=== PATIENT | female | born 1970 | race Caucasian/White ===

== ENCOUNTER 2024-08-25 15:29 | Inpatient (IN) | payer SELFPAY ==
[~2024-08-25] VITALS: Ht 162.6 cm; Wt 67.1 kg
[2024-08-25 19:36] LABS: BASOPHILS % 0.2 % (0.0-2.0); EOSINOPHILS % 2.2 % (0.0-5.0); HEMATOCRIT. 41.3 % (36.0-48.0); HEMOGLOBIN. 13.5 g/dL (12.0-16.0); LYMPHOCYTES % 41.4 % (20.0-50.0); MEAN CORPUSCULAR HEMOGLOBIN 28.7 pg (28.0-32.0); MEAN CORPUSCULAR HGB CONC 32.8 g/dL (31.0-37.0); MEAN CORPUSCULAR VOLUME 87.6 fL (81.0-99.0); MEAN PLATELET VOLUME 9.1 fl (7.4-10.4); MONOCYTES % 3.6 % (2.0-8.0); NEUTROPHILS % 52.6 % (40.0-76.0); PLATELET 224 x1000/uL (130-400); RED BLOOD CELL COUNT 4.71 mill/uL (4.2-5.4); RED CELL DISTRIBUTION WIDTH 13.7 % (11.6-14.6)
[2024-08-25 19:42] LABS: CHLORIDE 104 mEq/L (98-107); POTASSIUM 3.7 mEq/L (3.5-5.1); SODIUM 140 mEq/L (136-145)
[2024-08-25 19:43] LABS: CALCIUM 10.1 mg/dL (8.7-10.4)
[2024-08-25 19:48] LABS: CARBON DIOXIDE 24 mEq/L (21-32); CREATININE 0.7 mg/dL (0.6-1.0); GLUCOSE 116 mg/dL (70-105); UREA NITROGEN BLOOD 13 mg/dL (9-23)
[2024-08-25 21:24] LABS: ALANINE AMINOTRANSFERASE 116 IU/L (10-49); ALBUMIN 4.4 g/dL (3.2-4.8); ASPARTATE AMINOTRANSFERASE 60 IU/L (<34); BILIRUBIN DIRECT 0.2 mg/dL (<=3.0); BILIRUBIN TOTAL 0.6 mg/dL (0.1-1.0); PROTEIN TOTAL 7.5 g/dL (6.0-8.3)
[2024-08-25 21:37] LABS: TROPONIN I HIGH SENSITIVITY < 4 ng/L (3.0-34)
[2024-08-25] MEDS ORDERED: PROT40 MT (22:47)
[2024-08-25] MEDS ORDERED: MAG-55 MT (22:47)
[2024-08-25] MEDS: MAGNESIUM/ALUMINUM HYDROXIDE/SIMETHICONE 30ML UDC PO NR (23:23)
[2024-08-25] MEDS: ONDANSETRON 4MG ODT PO STA (23:23)
[2024-08-25] MEDS: MAGNESIUM/ALUMINUM HYDROXIDE/SIMETHICONE 30ML UDC PO STA (23:23)
[2024-08-25] MEDS: FAMOTIDINE 20MG TABLET PO ONE (23:23)
[2024-08-25] MEDS: ONDANSETRON 4MG ODT PO NR (23:24)
[2024-08-25] MEDS: FAMOTIDINE 20MG TABLET PO NR (23:24)
[2024-08-26] MEDS: ASPIRIN 325MG EC TABLET PO ONE (00:24)
[2024-08-26] MEDS ORDERED: ONDANSETRON HCL 4MG/2ML INJ IV PRN (00:45)
[2024-08-26] MEDS: DEXT 5%/0.9% NACL 1,000 ML IV SCH (00:45)
[2024-08-26] MEDS ORDERED: IPRATROPIUM/ALBUTEROL 0.5-3(2.5)MG/3ML NEB HHN PRN (00:45)
[2024-08-26] MEDS ORDERED: MAGNESIUM/ALUMINUM HYDROXIDE/SIMETHICONE 30ML UDC PO PRN (00:45)
[2024-08-26] MEDS ORDERED: MORPHINE SULFATE 2 MG/ML INJ (NOT FOR IM USE) IV PRN (00:45)
[2024-08-26] MEDS ORDERED: ACETAMINOPHEN 650MG/20.3ML UDC GT PRN (00:45)
[2024-08-26] MEDS ORDERED: CLONIDINE 0.1MG TABLET PO PRN (00:45)
[2024-08-26] MEDS ORDERED: HYDROCODONE/ACETAMINOPHEN 5/325MG TABLET PO PRN (00:45)
[2024-08-26] MEDS: PANTOPRAZOLE SODIUM 40 MG/VIAL IV SCH (01:15)
[2024-08-26 01:16] LABS: VITAMIN B12 SERUM 485 pg/mL (211-911)
[2024-08-26 03:04] LABS: CREATINE KINASE MB FRACTION 1.5 ng/mL (0.5-3.6); PHOSPHORUS 3.9 mg/dL (2.5-4.9)
[2024-08-26 03:05] LABS: CREATINE KINASE 110 IU/L (34-145)
[2024-08-26 03:11] LABS: PROTHROMBIN TIME 10.3 sec (9.6-11.0)
[2024-08-26 04:00] VITALS: BP 103/64; PULSE 57; RESP 18; TEMP 39.4; O2SAT 100
[2024-08-26 04:02] LABS: TROPONIN I HIGH SENSITIVITY < 4 ng/L (3.0-34)
[2024-08-26 04:13] VITALS: BP 103/64; PULSE 57; RESP 18; TEMP 36.6
[2024-08-26] MEDS: SUCRALFATE 1G TABLET PO SCH (06:50)
[2024-08-26 08:00] VITALS: BP 94/47; PULSE 59; RESP 18; TEMP 36.9; O2SAT 96
[2024-08-26] MEDS ORDERED: SODIUM CHLORIDE 0.9% 500 ML IV NR ×2 (09:00→09:06)
[2024-08-26] MEDS ORDERED: PANTOPRAZOLE SODIUM 40 MG/VIAL IV SCH (09:00)
[2024-08-26] MEDS: KETOROLAC 15MG/ML VIAL IV PRN (10:44)
[2024-08-26 12:00] VITALS: BP 110/59; PULSE 57; RESP 18; TEMP 36.8; O2SAT 98
[2024-08-26 12:31] LABS: CHLORIDE 109 mEq/L (98-107); SODIUM 142 mEq/L (136-145)
[2024-08-26 12:32] LABS: CALCIUM 8.5 mg/dL (8.7-10.4); CARBON DIOXIDE 26 mEq/L (21-32)
[2024-08-26 12:37] LABS: CREATININE 0.7 mg/dL (0.6-1.0); GLUCOSE 113 mg/dL (70-105); UREA NITROGEN BLOOD 11 mg/dL (9-23)
[2024-08-26 12:40] LABS: HEMATOCRIT 39.9 % (36.0-48.0); HEMOGLOBIN 13.2 g/dL (12.0-16.0); MEAN CORPUSCULAR HEMOGLOBIN 28.6 pg (28.0-32.0); MEAN CORPUSCULAR VOLUME 86.7 fL (81.0-99.0); RED CELL DISTRIBUTION WIDTH 13.7 % (11.6-14.6); WHITE BLOOD COUNT 5.7 x1000/uL (4.5-11.0)
[2024-08-26 12:56] LABS: HEPATITIS B SURFACE ANTIGEN NEGATIVE (Negative)
[2024-08-26 13:17] LABS: HEPATITIS A AB IGM NEGATIVE (Negative)
[2024-08-26 13:18] LABS: HEPATITIS B CORE AB IGM NEGATIVE (Negative); HEPATITIS C AB NON REACTIVE (Neg) (Negative)
[2024-08-26 14:28] LABS: PLATELET 175 x1000/uL (130-400)
[2024-08-26 16:00] VITALS: BP 98/56; PULSE 58; RESP 16; TEMP 37.1; O2SAT 98
[2024-08-26 17:08] LABS: CREATINE KINASE MB FRACTION 0.8 ng/mL (0.5-3.6)
[2024-08-26 17:10] LABS: CREATINE KINASE 77 IU/L (34-145)
[2024-08-26] MEDS ORDERED: NOREPINEPHRINE 8 MG in DEXT 5% WATER 242 ML IV PRN (17:45)
[2024-08-26] MEDS ORDERED: ATROPINE SULFATE 1MG/10ML SYR IV PRN (17:45)
[2024-08-26] MEDS ORDERED: HYDRALAZINE 20MG/ML VIAL IV PRN (18:00)
[2024-08-26 18:03] LABS: TROPONIN I HIGH SENSITIVITY < 4 ng/L (3.0-34)
[2024-08-26 20:00] VITALS: BP 110/55; PULSE 61; RESP 18; TEMP 36.3; O2SAT 95
[2024-08-26] MEDS ORDERED: MIDODRINE HCL 5MG TABLET PO SCH (22:00)
[2024-08-26 22:03] LABS: CREATINE KINASE MB FRACTION 0.8 ng/mL (0.5-3.6)
[2024-08-26 22:04] LABS: CREATINE KINASE 81 IU/L (34-145)
[2024-08-26] MEDS: AMOXICILLIN 500MG CAPSULE PO SCH (22:07)
[2024-08-26] MEDS: CLARITHROMYCIN 500MG TABLET PO SCH (22:08)
[2024-08-26] MEDS: PANTOPRAZOLE 40MG DR TABLET PO SCH (22:10)
[2024-08-26 22:25] LABS: TROPONIN I HIGH SENSITIVITY < 4 ng/L (3.0-34)
[2024-08-26] MEDS ORDERED: IOHEXOL-350 100 ML BOTTLE ONE (22:57)
[2024-08-27] VITALS: BP 107/57; PULSE 66; RESP 18; TEMP 36.3; O2SAT 98
[2024-08-27 04:00] VITALS: BP 114/54; PULSE 65; RESP 18; TEMP 36.4; O2SAT 94
[2024-08-27 07:48] LABS: CHLORIDE 109 mEq/L (98-107); POTASSIUM 3.8 mEq/L (3.5-5.1); SODIUM 143 mEq/L (136-145)
[2024-08-27 07:49] LABS: CALCIUM 8.4 mg/dL (8.7-10.4); CARBON DIOXIDE 27 mEq/L (21-32)
[2024-08-27 07:54] LABS: CREATININE 0.6 mg/dL (0.6-1.0); GLUCOSE 105 mg/dL (70-105); TRIGLYCERIDE 60 mg/dL (0-150); UREA NITROGEN BLOOD 10 mg/dL (9-23)
[2024-08-27 07:55] LABS: LDL CHOLESTEROL 79 mg/dL (5-100)
[2024-08-27 07:56] LABS: ALANINE AMINOTRANSFERASE 101 IU/L (10-49); ALBUMIN 3.5 g/dL (3.2-4.8); ASPARTATE AMINOTRANSFERASE 50 IU/L (<34)
[2024-08-27 07:57] LABS: BILIRUBIN DIRECT 0.2 mg/dL (<=3.0); BILIRUBIN TOTAL 0.7 mg/dL (0.1-1.0); CHOLESTEROL 129 mg/dL (<200); HDL CHOLESTEROL 39 mg/dL (>65); THYROID STIMULATING HORMONE 3.37 uIU/mL (0.55-4.78)
[2024-08-27 07:58] LABS: T4 FREE 0.82 ng/dL (0.89-1.76)
[2024-08-27 08:00] VITALS: BP 110/68; PULSE 64; RESP 18; TEMP 36.8; O2SAT 97
[2024-08-27 08:24] LABS: BASOPHILS % 0.2 % (0.0-2.0); EOSINOPHILS % 2.1 % (0.0-5.0); HEMATOCRIT. 36.2 % (36.0-48.0); HEMOGLOBIN. 12.3 g/dL (12.0-16.0); LYMPHOCYTES % 35.8 % (20.0-50.0); MEAN CORPUSCULAR HEMOGLOBIN 29.4 pg (28.0-32.0); MEAN CORPUSCULAR HGB CONC 33.9 g/dL (31.0-37.0); MEAN CORPUSCULAR VOLUME 86.8 fL (81.0-99.0); MEAN PLATELET VOLUME 9.3 fl (7.4-10.4); MONOCYTES % 3.9 % (2.0-8.0); PLATELET 192 x1000/uL (130-400); RED BLOOD CELL COUNT 4.17 mill/uL (4.2-5.4); RED CELL DISTRIBUTION WIDTH 13.4 % (11.6-14.6); WHITE BLOOD COUNT 4.9 x1000/uL (4.5-11.0)
[2024-08-27] MEDS: NITROGLYCERIN SPRAY/4.9GM CAN TL ONE (09:25)
[2024-08-27] MEDS ORDERED: IOHEXOL-350 100 ML BOTTLE ONE (10:52)
[2024-08-27 12:00] VITALS: BP 105/43; PULSE 67; RESP 18; TEMP 36.7; O2SAT 98
[2024-08-27 16:00] VITALS: BP 111/55; PULSE 62; RESP 18; TEMP 36.8; O2SAT 98
[2024-08-27 20:00] VITALS: BP 97/45; PULSE 69; RESP 17; TEMP 36.2; O2SAT 96
[2024-08-28] VITALS: BP 103/51; PULSE 60; RESP 17; TEMP 36.3; O2SAT 97
[2024-08-28 04:00] VITALS: BP 93/52; PULSE 61; RESP 18; TEMP 36.3; O2SAT 100
[2024-08-28 08:00] VITALS: BP 95/46; PULSE 69; RESP 18; TEMP 36.7; O2SAT 96
[2024-08-28 08:32] LABS: CLARITY URINE CLEAR (CLEAR); COLOR URINE YELLOW (YELLOW); GLUCOSE URINE NEGATIVE (NEGATIVE); KETONES URINE NEGATIVE (NEGATIVE); LEUKOCYTE ESTERASE URINE NEGATIVE (NEGATIVE); NITRITE URINE NEGATIVE (NEGATIVE); OCCULT BLOOD URINE NEGATIVE (NEGATIVE); PH URINE 5.5 (4.5-8.0); PROTEIN URINE NEGATIVE (NEGATIVE); SPECIFIC GRAVITY URINE 1.019 (1.005-1.030); UROBILINOGEN URINE 0.2 E.U./dL (0.2-1.0)
[2024-08-28 08:45] LABS: INFLUENZA TYPE A Presumptive Negative (Pres. Neg.); INFLUENZA TYPE B Presumptive Negative (Pres. Neg.)
[2024-08-28 09:10] LABS: *AMPHETAMINES SCREEN URINE NEGATIVE (NEGATIVE); *BARBITURATES SCREEN URINE NEGATIVE (NEGATIVE); *BENZODIAZEPINES SCREEN URINE NEGATIVE (NEGATIVE); *COCAINE SCREEN URINE NEGATIVE (NEGATIVE); CANNABINOID URINE SCREEN NEGATIVE (NEGATIVE); ECSTASY MDMA SCREEN URINE NEGATIVE (NEGATIVE); METHADONE URINE SCREEN NEGATIVE (NEGATIVE); OPIATES URINE SCREEN NEGATIVE (NEGATIVE); PHENCYCLIDINE URINE SCREEN NEGATIVE (NEGATIVE)
[2024-08-28 12:00] VITALS: BP 114/55; PULSE 62; RESP 18; TEMP 36.7; O2SAT 96
[2024-08-28] MEDS ORDERED: AMOX-494 PO (15:05)
[2024-08-28] MEDS ORDERED: SUCR1TAB PO (15:05)
[2024-08-28] MEDS ORDERED: PANT40TA51 PO (15:05)
[2024-08-28] MEDS ORDERED: CLAR-44 PO (15:05)
[2024-08-28 15:57] VITALS: BP 108/62; PULSE 66; TEMP 98.2; O2SAT 96
[2024-08-28 16:00] VITALS: BP 108/62; PULSE 66; RESP 18; TEMP 36.8; O2SAT 96
== END 2024-08-28 22:06 | disposition home or self-care (01) | DRG 241 ==
LOC: ER 15:29 → EDBEDREQTM 23:07 → EDBEDREQ 08-26 00:23 → 5WST 08-26 02:03
PROVIDERS: ADMIT Hospitalist; ATTEND Hospitalist
DX: K27.9 Peptic ulcer, site unspecified, unspecified as acute or chronic, without hemorrhage or perforation (principal); K76.0 Fatty (change of) liver, not elsewhere classified; I95.9 Hypotension, unspecified; B96.81 Helicobacter pylori [H. pylori] as the cause of diseases classified elsewhere; R07.89 Other chest pain; Z90.49 Acquired absence of other specified parts of digestive tract; I51.7 Cardiomegaly; K52.89 Other specified noninfective gastroenteritis and colitis; K21.9 Gastro-esophageal reflux disease without esophagitis; R00.1 Bradycardia, unspecified; Z86.0100 Personal history of colon polyps, unspecified; Z87.11 Personal history of peptic ulcer disease
CPT/HCPCS: 36415; 71045; 71275; 74174; 74176; 75571; 76705; 80048; 80061; 80076; 80305; 81003; 82550; 82553; 82607; 83605; 83735; 83880; 84100; 84145; 84439; 84443; 84484; 85025; 85027; 86705; 86709; 86850; 86900; 87340; 87804; 92610; 93005; 93306; 99285; A4606; A6261; J1885; J2470; Q0162; Q9967